=== PATIENT | male | born 2000 | race Two or more races ===

== ENCOUNTER 2020-01-25 12:33 | Emergency (ER) | payer SELFPAY ==
[2020-01-25 12:59] VITALS: BP 140/77
[2020-01-25] MEDS ORDERED: IBUPROFEN 800 MG TABLET PO ONE (13:01)
[2020-01-25] MEDS ORDERED: CEPHALEXIN 500 MG CAPSULE PO ONE (13:01)
--- NOTE | 2020-01-25 13:04 | ER Document Report ---
HPI - HPI Patient complains to provider of: left lower leg redness Time Seen by Provider: 01/25/20 12:40 Onset: Yesterday Onset/Duration: Sudden Quality of pain: Achy Pain Level: 3 Context: 19-year-old male with no prior history presents to the emergency department with complaints of left lower leg chin pain. Reports symptoms started yesterday. Erythema today. Reports he had chills but denies fever vomiting diarrhea. Denies trauma to the area. Reports he just woke up it was hurting. 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 Denies trauma. Patient did go to immediate care urgent care prior to arrival here the emergency department he is carrying a piece of paper that notes easy bruising bleeding fatigue. Patient's friend is with him and he does not know why they wrote that on the paper. He reports he did not have the symptoms. He reports he did ask about diabetes because he is a family history of diabetes. Patient speaks primarily Persian. Associated Symptoms: Chills Exacerbated by: Denies Relieved by: Denies Similar symptoms previously: No Recently seen / treated by doctor: No - CONSTITUTIONAL Constitutional: REPORTS: Fever, Chills Past Medical History - General Information source: Patient - Social History Smoking Status: Never Smoker Frequency of alcohol use: None Drug Abuse: None Family History: DM Patient has suicidal ideation: No Patient has homicidal ideation: No - Medical History Medical History: Negative Surgical Hx: Negative Vertical Provider Document - CONSTITUTIONAL Agree With Documented VS: Yes Exam Limitations: No Limitations General Appearance: WD/WN, No Apparent Distress - INFECTION CONTROL TRAVEL OUTSIDE OF THE [place] IN LAST 30 DAYS: No - HEENT HEENT: Atraumatic, Normocephalic - NECK Neck: Supple - RESPIRATORY Respiratory: Breath Sounds Normal, No Respiratory Distress - CARDIOVASCULAR Cardiovascular: Regular Rate - MUSCULOSKELETAL/EXTREMETIES Musculoskeletal/Extremeties: MAEW, FROM, Tender - left haskins ttp with erythema, warmth, no pustule, no induration no fluctuance, pedal pulse +3 cap refill less than 2 seconds, denies calf pain - NEURO Level of Consciousness: Awake, Alert, Appropriate - DERM Integumentary: Warm, Dry Adult Front & Back Diagram: 1 - Erythema noted approximately 6 cm in length 4 cm in width area circled. No pustule no induration noted Course - Re-evaluation Re-evalutation: 01/25/20 13:07 19-year-old male presents with left lower leg haskins pain with erythema. She speaks primarily Persian. He did go to urgent care prior to arrival here. They sent him over to the emergency department with notes that he is fatigued easily bruising and bleeding. Patient is being interpreted to his friend. We did obtain Martti. Patient reports to Marcio that he only has pain to his leg. He does not know why they wrote easy bleeding bruising and fatigue. He reports he did ask about diabetes because he has a family history of diabetes but he denies all the other symptoms. Reports pain to the left lower leg chin area and also reports he had chills yesterday. Patient was instructed on Keflex and ibuprofen for the pain. The area of erythema was marked circled with a surgical marker. He was instructed to return to the emergency department should this area become wider larger increased pain increased redness. He reports he does have somebody at home that can read French. Patient discharged home. - Vital Signs Vital signs: Temp Pulse Resp BP Pulse Ox 98.8 F 69 16 140/77 H 97 01/25/20 12:42 01/25/20 12:42 01/25/20 12:42 01/25/20 12:42 01/25/20 12:42 Discharge - Discharge Clinical Impression: cellulitis left haskins Condition: Stable Disposition: HOME, SELF-CARE Instructions: Cellulitis ([facility]), Cephalexin ([facility]), Family Physicians / Practices, Ibuprofen (General) ([facility]) Additional Instructions: *You have been treated for cellulitis Left Haskins *Take medication as prescribed *Monitor the site for signs of increasing infection such as increasing pain, redness, swelling, warmth *Keep the site clean *Follow up with a primary care provider within one week for recheck *Return to ED for signs of increasing infection, worsening condition, changes, needs, increasing redness, increasing pain swelling or warmth Monitor your blood pressure. Your blood pressure was elevated today. This may be because you were anxious, in pain or because you need medication. It is important to follow up with your primary care provider for full evaluation. Prescriptions: Cephalexin Monohydrate [Keflex 500 mg Capsule] 500 mg PO QID #20 capsule Ibuprofen [Motrin 800 mg Tablet] 800 mg PO TID #15 tablet Forms: Elevated Blood Pressure
== END 2020-01-25 13:15 | disposition home or self-care (01) ==
LOC: ER 12:33
DX: L03.116 Cellulitis of left lower limb (principal)
CPT/HCPCS: 99283